=== PATIENT | male | born 1965 | race Caucasian/White ===

== ENCOUNTER 2020-06-07 03:19 | Outpatient (RCR) | payer MEDICARE, MEDICAID, SELFPAY ==
[2020-05-31 08:21] LABS: Abs Immature Grans 0.07 10^3/uL (0.0-0.06); Absolute Basophil Count 0.09 10^3/uL (0.0-0.2); Absolute Eosinophil Count 0.07 10^3/uL (0.0-0.7); Absolute Lymphocyte Count 0.89 10^3/uL (1.2-3.4); Absolute Monocyte Count 0.79 10^3/uL (0.1-0.8); Absolute Neutrophil Count 4.55 10^3/uL (1.2-6.7); Basophils % 1.4; Eosinophils % 1.1; HCT 36.3 % (40.0-50.0); HGB 11.7 g/dL (13.5-17.5); Immature Grans % 1.1; Lymphocytes % 13.8; MCH 30.2 pg (27.0-33.0); MCHC 32.2 % (32.0-36.0); MCV 93.6 fL (80-95); MPV 9.8 fL (8.0-11.0); Monocytes % 12.2; Neutrophils % 70.4; Nucleated RBC 0 %; Platelet Count 424 10^3/uL (130-400); RBC 3.88 10^6/uL (4.36-5.78); RDW 13.4 % (11.8-14.1); RDW-SD 45.7 fL; WBC 6.46 10^3/uL (4.4-10.8)
[2020-05-31 08:36] LABS: ALT 28 U/L (16-63); AST 32 U/L (15-37); Albumin 2.7 g/dL (3.4-5.0); Alkaline Phosphatase 83 U/L (46-116); Anion Gap 10.2 mmol/L (3-11); BUN 15 mg/dL (7-18); Bilirubin, Total 0.5 mg/dL (0.2-1.0); CO2 25.8 mmol/L (21.0-32.0); CREATININE 0.9 mg/dL (0.70-1.30); Calcium 9.3 mg/dL (8.5-10.1); Chloride 101 mmol/L (98-107); Glucose 116 mg/dL (74-106); Potassium 4.6 mmol/L (3.5-5.1); Sodium 137 mmol/L (136-145); Total Protein 7.8 g/dL (6.4-8.2)
[2020-05-31] MEDS: Normal Saline Flush 10 ML SYR IVP (08:42)
[2020-06-07 09:16] LABS: Abs Immature Grans 0.01 10^3/uL (0.0-0.06); Absolute Basophil Count 0.04 10^3/uL (0.0-0.2); Absolute Eosinophil Count 0.01 10^3/uL (0.0-0.7); Absolute Lymphocyte Count 0.42 10^3/uL (1.2-3.4); Absolute Monocyte Count 0.68 10^3/uL (0.1-0.8); Absolute Neutrophil Count 1.68 10^3/uL (1.2-6.7); Basophils % 1.4; Eosinophils % 0.4; HCT 37.2 % (40.0-50.0); HGB 11.8 g/dL (13.5-17.5); Immature Grans % 0.4; Lymphocytes % 14.8; MCH 29.8 pg (27.0-33.0); MCHC 31.7 % (32.0-36.0); MCV 93.9 fL (80-95); Monocytes % 23.9; Neutrophils % 59.1; Nucleated RBC 0 %; Platelet Count 238 10^3/uL (130-400); RBC 3.96 10^6/uL (4.36-5.78); RDW 13.5 % (11.8-14.1); RDW-SD 45.5 fL; WBC 2.84 10^3/uL (4.4-10.8)
[2020-06-07] MEDS: Normal Saline Flush 10 ML SYR IVP (09:21)
[2020-06-07 09:38] LABS: ALT 33 U/L (16-63); AST 26 U/L (15-37); Albumin 2.7 g/dL (3.4-5.0); Alkaline Phosphatase 83 U/L (46-116); Anion Gap 7.7 mmol/L (3-11); BUN 18 mg/dL (7-18); Bilirubin, Total 0.5 mg/dL (0.2-1.0); CO2 28.3 mmol/L (21.0-32.0); CREATININE 0.9 mg/dL (0.70-1.30); Calcium 8.7 mg/dL (8.5-10.1); Chloride 100 mmol/L (98-107); Glucose 110 mg/dL (74-106); Magnesium 1.9 mg/dL (1.8-2.4); Potassium 4.5 mmol/L (3.5-5.1); Sodium 136 mmol/L (136-145); Total Protein 7.6 g/dL (6.4-8.2)
== END 2020-06-11 23:59 | disposition home or self-care (01) ==
LOC: INF 03:19
PROVIDERS: PCP Nurse Practitioner Family; Visit Provider Internal Medicine Medical Oncology
DX: C37 Malignant neoplasm of thymus (principal)
CPT/HCPCS: 36415; 36591; 80053; 83735; 85025

== ENCOUNTER 2020-06-21 02:51 | Outpatient (RCR) | payer MEDICARE, MEDICAID, SELFPAY ==
[2020-06-14] MEDS: Normal Saline Flush 10 ML SYR IVP (09:47)
[2020-06-14 10:05] LABS: Abs Immature Grans 0.04 10^3/uL (0.0-0.06); Absolute Basophil Count 0.03 10^3/uL (0.0-0.2); Absolute Eosinophil Count 0.01 10^3/uL (0.0-0.7); Absolute Lymphocyte Count 0.22 10^3/uL (1.2-3.4); Absolute Monocyte Count 0.59 10^3/uL (0.1-0.8); Absolute Neutrophil Count 2.27 10^3/uL (1.2-6.7); Basophils % 0.9; Eosinophils % 0.3; HCT 34.7 % (40.0-50.0); HGB 11.1 g/dL (13.5-17.5); Immature Grans % 1.3; MCH 29.8 pg (27.0-33.0); MCV 93.3 fL (80-95); MPV 10.1 fL (8.0-11.0); Monocytes % 18.7; Neutrophils % 71.8; Nucleated RBC 0 %; Platelet Count 154 10^3/uL (130-400); RBC 3.72 10^6/uL (4.36-5.78); RDW 14.4 % (11.8-14.1); RDW-SD 46.8 fL; WBC 3.16 10^3/uL (4.4-10.8)
[2020-06-14 10:09] LABS: ALT 28 U/L (16-63); AST 23 U/L (15-37); Albumin 2.6 g/dL (3.4-5.0); Alkaline Phosphatase 84 U/L (46-116); BUN 16 mg/dL (7-18); Bilirubin, Total 0.4 mg/dL (0.2-1.0); CREATININE 0.9 mg/dL (0.70-1.30); Calcium 8.9 mg/dL (8.5-10.1); Chloride 99 mmol/L (98-107); Glucose 105 mg/dL (74-106); Magnesium 1.8 mg/dL (1.8-2.4); Potassium 4.2 mmol/L (3.5-5.1); Sodium 137 mmol/L (136-145); Total Protein 7.5 g/dL (6.4-8.2)
== END 2020-07-12 23:59 | disposition home or self-care (01) ==
LOC: INF 02:51
PROVIDERS: PCP Nurse Practitioner Family; Visit Provider Internal Medicine Medical Oncology
DX: C37 Malignant neoplasm of thymus (principal); Z45.2 Encounter for adjustment and management of vascular access device
CPT/HCPCS: 36415; 80053; 83735; 85025